=== PATIENT | male | born 1995 | race Caucasian/White ===

== ENCOUNTER 2017-03-01 11:17 | Emergency (ER) | payer OTHER ==
[2017-03-01] MEDS ORDERED: NS 1,000 ML IV ONE (11:43)
[2017-03-01 11:54] LABS: % IMMATURE GRANULYOCYTES 0.6 % (0.0-1.1); ABSOLUTE IMMATURE GRANULOCYTES 0.13 10^3/uL (0.00-0.10); ADD DIFF? NO; ADD MORPH? NO; ADD SCAN? NO; ATYPICAL LYMPHOCYTE FLAG 0 (0-99); FRAGMENT RBC FLAG 0 (0-99); HEMATOCRIT 44.2 % (40.0-51.0); LEFT SHIFT FLG 10 (0-99); LIPEMIA HEMOLYSIS FLAG 90 (0-99); MEAN CELL HEMOGLOBIN 31.2 pg (27.9-34.1); MEAN CELL HEMOGLOBIN CONCENTR. 36.2 g/dL (32.4-36.7); MEAN CELL VOLUME 86.2 fL (81.5-99.8); MEAN PLATELET VOLUME 9.3 fL (8.7-11.7); PLATELET CLUMPS FLAG 0 (0-99); PLATELET COUNT 199 10^3/uL (150-400); RED BLOOD CELL COUNT 5.13 10^6/uL (4.40-6.38); RED CELL DISTRIBUTION WIDTH 12.4 % (11.5-15.2)
--- NOTE | 2017-03-01 11:54 | EDPHY ---
H & P Stated Complaint: sore throat , fever, body aches, N/V Time Seen by Provider: 03/01/17 11:38 HPI/ROS: CHIEF COMPLAINT: 2 days of flu-like symptoms, sore throat HISTORY OF PRESENT ILLNESS: 21-year-old immunocompetent male complaining 2 days of sore throat, flu-like symptoms, nausea, vomiting. No abdominal pain. No melena or hematochezia. No hematemesis. No rash.-no nuchal rigidity. No cough. No urinary abnormality. No chest pain. No dyspnea. PRIMARY CARE PROVIDER:[facility] REVIEW OF SYSTEMS: A ten point review of systems was performed and is negative with the exception of the items mentioned in the HPI PAST MEDICAL & SURGICAL HISTORY: Anxiety. Frequent strep pharyngitis SOCIAL HISTORY: student. Originally from [place] PHYSICAL EXAM (Prior to examination, patient consented to physical exam, hands were washed and my usual and customary physical exam procedures followed) 1) GENERAL: Well-developed, well-nourished, alert and oriented. Appears to be in no acute distress. 2) HEAD: Normocephalic, atraumatic 3) HEENT: Pupils equal, round, reactive to light bilaterally. Sclera anicteric. Oropharynx: No trismus no drooling no hot potato voice, bilateral tonsils are symmetrically enlarged with white exudate. Uvula midline. Ears bilaterally with normal tympanic membranes. 4) NECK: Full range of motion, no meningeal signs. Positive submandibular adenopathy which is tender 5) LUNGS: Clear auscultation bilaterally, no wheezes, no rhonchi, no retractions. 6) HEART: Regular rate and rhythm, no murmur, no heave, no gallop. 7) ABDOMEN: No guarding, no rebound, no focal tenderness, negative McBurney's, negative Dominguez's, negative Rovsing's, negative peritoneal sign, 8) MUSCULOSKELETAL: Moving all extremities, no focal areas of tenderness, no obvious trauma. No peripheral edema or discoloration. 9) BACK: No CVA tenderness 10) SKIN: No rash, no petechiae. 11) Psychiatric: Patient is oriented X 3, there is no agitation. DIFFERENTIAL DIAGNOSIS: in no particular include but limited to strep pharyngitis, influenza, mononucleosis, meningitis - Personal History Current Tetanus/Diphtheria Vaccine: Yes Current Tetanus Diphtheria and Acellular Pertussis (TDAP): Yes - Medical/Surgical History Hx Asthma: No Hx Chronic Respiratory Disease: No Hx Diabetes: No Hx Cardiac Disease: No Hx Renal Disease: No Hx Cirrhosis: No Hx Alcoholism: No Hx HIV/AIDS: No Hx Splenectomy or Spleen Trauma: No Other PMH: PSH: adnoidECTOMY/PANIC/ANXIETY; on mirtazapine and Zoloft. - Social History Smoking Status: Never smoked Constitutional: Initial Vital Signs Heart Rate 103 H 03/01/17 11:23 Respiratory Rate 17 03/01/17 11:23 Blood Pressure 105/73 03/01/17 11:23 O2 Sat (%) 98 03/01/17 11:23 O2 Delivery Mode Room Air Allergies/Adverse Reactions: No Known Allergies Allergy (Verified 09/18/16 11:41) Home Medications: Medication Instructions Recorded MIRTAZAPINE 09/18/16 Zoloft 100mg (*) 09/18/16 Amoxicillin/Clavulanate Pot 875 mg PO BID #14 tab 03/01/17 [Augmentin 875 mg tab] Medical Decision Making ED Course/Re-evaluation: Patient was re-evaluated with serial exams was recently at 1:00 p.m.. Discussed his laboratory results. High clinical suspicion for strep pharyngitis based on his history and his current physical exam presenting symptoms. He has been given dose of IV Decadron in the emergency department. Plan will be discharged with oral Augmentin. Think the deep space infection, peritonsillar abscess, retropharyngeal abscess or phlegmon are less than likely in this patient at this time as he has no nuchal rigidity, has physical exam findings consistent with more than likely strep pharyngitis. I recommended empiric treatment. Doubt meningitis. Strict return precautions provided. He feels comfortable being discharged. Also recommended he follow up with an ear nose and throat doctor for his acute symptoms as well as his self-described history of frequent episodes of strep pharyngitis. - Data Points Laboratory Results: Laboratory Results 03/01/17 11:40 03/01/17 11:40 03/01/17 03/01/17 03/01/17 11:50 11:50 11:40 WBC RBC Hgb Hct MCV MCH MCHC RDW Plt Count MPV Neut % (Auto) Lymph % (Auto) [place] % (Auto) Eos % (Auto) Baso % (Auto) Nucleat RBC Rel Count Absolute Neuts (auto) Absolute Lymphs (auto) Absolute Monos (auto) Absolute Eos (auto) Absolute Basos (auto) Absolute Nucleated RBC Immature Gran % Immature Gran # Sodium 137 mEq/L mEq/L (134-144) Potassium 4.0 mEq/L mEq/L (3.5-5.2) Chloride 101 mEq/L mEq/L (97-110) Carbon Dioxide 19 mEq/l L mEq/l (22-31) Anion Gap 17 mEq/L H mEq/L (8-16) BUN 17 mg/dL mg/dL (7-23) Creatinine 1.1 mg/dL mg/dL (0.7-1.3) Estimated GFR > 60 Glucose 119 mg/dL H mg/dL (70-100) Calcium 10.4 mg/dL mg/dL (8.5-10.4) Total Bilirubin 1.6 mg/dL H mg/dL (0.1-1.4) Conjugated Bilirubin 0.6 mg/dL H mg/dL (0.0-0.5) Unconjugated Bilirubin 1.0 mg/dL mg/dL (0.0-1.1) AST 27 IU/L IU/L (17-59) ALT 29 IU/L IU/L (21-72) Alkaline Phosphatase 117 IU/L IU/L (38-126) Total Protein 8.6 g/dL H g/dL (6.3-8.2) Albumin 4.9 g/dL g/dL (3.5-5.0) Lipase 14.0 IU/L L IU/L (23-300) Monoscreen NEGATIVE (NEGATIVE) Influenza Typ A,B (DFA) NEGATIVE FOR FLU (NEGATIVE) 03/01/17 11:40 WBC 21.54 10^3/uL H 10^3/uL (3.80-9.50) RBC 5.13 10^6/uL 10^6/uL (4.40-6.38) Hgb 16.0 g/dL g/dL (13.7-17.5) Hct 44.2 % % (40.0-51.0) MCV 86.2 fL fL (81.5-99.8) MCH 31.2 pg pg (27.9-34.1) MCHC 36.2 g/dL g/dL (32.4-36.7) RDW 12.4 % % (11.5-15.2) Plt Count 199 10^3/uL 10^3/uL (150-400) MPV 9.3 fL fL (8.7-11.7) Neut % (Auto) 83.9 % H % (39.3-74.2) Lymph % (Auto) 4.1 % L % (15.0-45.0) [place] % (Auto) 11.0 % % (4.5-13.0) Eos % (Auto) 0.0 % L % (0.6-7.6) Baso % (Auto) 0.4 % % (0.3-1.7) Nucleat RBC Rel Count 0.0 % % (0.0-0.2) Absolute Neuts (auto) 18.09 10^3/uL H 10^3/uL (1.70-6.50) Absolute Lymphs (auto) 0.88 10^3/uL L 10^3/uL (1.00-3.00) Absolute Monos (auto) 2.36 10^3/uL H 10^3/uL (0.30-0.80) Absolute Eos (auto) 0.00 10^3/uL L 10^3/uL (0.03-0.40) Absolute Basos (auto) 0.08 10^3/uL 10^3/uL (0.02-0.10) Absolute Nucleated RBC 0.00 10^3/uL 10^3/uL (0-0.01) Immature Gran % 0.6 % % (0.0-1.1) Immature Gran # 0.13 10^3/uL H 10^3/uL (0.00-0.10) Sodium Potassium Chloride Carbon Dioxide Anion Gap BUN Creatinine Estimated GFR Glucose Calcium Total Bilirubin Conjugated Bilirubin Unconjugated Bilirubin AST ALT Alkaline Phosphatase Total Protein Albumin Lipase Monoscreen Influenza Typ A,B (DFA) Medications Given: Discontinued Medications Dexamethasone (Decadron Injection) 10 mg IVP EDNOW ONE Stop: 03/01/17 12:37 Last Admin: 03/01/17 12:44 Dose: 10 mg Sodium Chloride (Ns) 1,000 mls @ 0 mls/hr IV ONCE ONE PRN Reason: Wide Open Stop: 03/01/17 11:44 Last Admin: 03/01/17 11:51 Dose: 1,000 mls Ondansetron HCl (Zofran) 4 mg IVP EDNOW ONE Stop: 03/01/17 12:47 Last Admin: 03/01/17 12:58 Dose: 4 mg Departure - Departure Disposition: Home, Routine, Self-Care Clinical Impression: Strep pharyngitis Condition: Good Instructions: Strep Throat (ED) Additional Instructions: Return to the ER immediately if you cannot swallow, have drooling, fevers, neck stiffness, cannot open your jaw, or any other symptoms that concern you. Recommend he follow up with an ear nose and throat doctor. Dr. Theresa Fortune is an ear nose and throat doctor Referrals: RAEANN CORDERO MD [Other] - As per Instructions Prescriptions: Amoxicillin/Clavulanate Pot [Augmentin 875 mg tab] 875 mg PO BID #14 tab
[2017-03-01 12:20] LABS: ALANINE AMINOTRANSFERASE 29 IU/L (21-72); ALBUMIN 4.9 g/dL (3.5-5.0); ALKALINE PHOSPHATASE 117 IU/L (38-126); ANION GAP 17 mEq/L (8-16); ASPARTATE AMINOTRANSFERASE 27 IU/L (17-59); BILIRUBIN,TOTAL 1.6 mg/dL (0.1-1.4); BILIRUBIN-CONJUGATED 0.6 mg/dL (0.0-0.5); CALCIUM 10.4 mg/dL (8.5-10.4); CARBON DIOXIDE 19 mEq/l (22-31); CHLORIDE 101 mEq/L (97-110); CREATININE 1.1 mg/dL (0.7-1.3); GLOMERULAR FILTRATION RATE > 60; GLUCOSE 119 mg/dL (70-100); SODIUM 137 mEq/L (134-144); TOTAL PROTEIN 8.6 g/dL (6.3-8.2)
[2017-03-01] MEDS ORDERED: DEXAMETHASONE 10 MG/ML VIAL IVP ONE (12:36)
[2017-03-01] MEDS ORDERED: ONDANSETRON 4 MG/2 ML VIAL IVP ONE (12:46)
[2017-03-01 13:20] VITALS: RESP 16
[2017-03-01 13:33] VITALS: BP 112/67; PULSE 78; TEMP 98.2; O2SAT 98
== END 2017-03-01 13:33 | disposition home or self-care (01) ==
DX: J02.0 Streptococcal pharyngitis (principal)
CPT/HCPCS: 96374; J2405

== ENCOUNTER 2017-08-26 05:00 | Emergency (ER) | payer OTHER ==
[2017-08-26 05:08] VITALS: BP 121/73; PULSE 104; RESP 18; TEMP 99; O2SAT 96
--- NOTE | 2017-08-26 05:19 | EDPHY ---
H & P Stated Complaint: BIlat ear bleeding and infection on abx Time Seen by Provider: 08/26/17 05:07 HPI/ROS: Chief Complaint: Bilateral ear pain and discharge HPI: 21-year-old male with a history of recurrent ear infections was diagnosed with otitis media 3 days ago. He was started on azithromycin by urgent care. Patient woke this morning with worsening pain and blood and pus from his ears. Does not have a history of perforations in the past but did have myringotomy tubes as a child. No fevers or chills. No nausea or vomiting. No neck pain or stiffness. ROS: 10 point Review of Systems is negative except as noted in the HPI. PMH: Otitis media as a child Social History: No smoking Family History: non-contributory Physical Exam: Gen: Awake, Alert, No Distress HEENT: Ears: Bilateral auditory canals have purulent discharge without significant edema. Bilateral TMs are markedly edematous and bulging with obvious purulent discharge on both sides the TM. There is no mastoid tenderness. Nose: no rhinorrhea Eyes: PERRLA, EOMI Mouth: Moist mucosa Neck: Supple, no JVD Ext: no edema, non-tender Skin: no rash Neuro: CN II-XII intact, Sensation grossly intact, Strength 5/5 in bilateral upper and lower extremities - Personal History Current Tetanus/Diphtheria Vaccine: Yes Current Tetanus Diphtheria and Acellular Pertussis (TDAP): Yes - Medical/Surgical History Hx Asthma: No Hx Chronic Respiratory Disease: No Hx Diabetes: No Hx Cardiac Disease: No Hx Renal Disease: No Hx Cirrhosis: No Hx Alcoholism: No Hx HIV/AIDS: No Hx Splenectomy or Spleen Trauma: No Other PMH: PSH: adnoidECTOMY/PANIC/ANXIETY; on mirtazapine and Zoloft. - Social History Smoking Status: Current some day smoker Constitutional: Initial Vital Signs Temperature (C) 37.2 C 08/26/17 05:03 Heart Rate 104 H 08/26/17 05:03 Respiratory Rate 18 08/26/17 05:03 Blood Pressure 121/73 H 08/26/17 05:03 O2 Sat (%) 96 08/26/17 05:03 O2 Delivery Mode Room Air Allergies/Adverse Reactions: No Known Allergies Allergy (Verified 08/26/17 05:05) Home Medications: Medication Instructions Recorded MIRTAZAPINE 09/18/16 Zoloft 100mg (*) 09/18/16 Amoxicillin/Clavulanate Pot 875 mg PO BID #14 tab 03/01/17 [Augmentin 875 mg tab] Amoxicillin/Clavulanate Pot 875 mg PO BID #28 tab 08/26/17 [Augmentin 875 MG TAB (*)] Ofloxacin [Floxin] 10 ml OT BID #1 drops 08/26/17 Medical Decision Making ED Course/Re-evaluation: 21-year-old male with bilateral otitis media now with likely perforations. He has been on azithromycin which would not be my 1st choice for otitis media. I will start him on Augmentin. I also started on Floxin otic and analgesia. I have referred him to Dr. Aviles, ENT for outpatient follow-up. Departure - Departure Disposition: Home, Routine, Self-Care Clinical Impression: Acute otitis media, Perforated tympanic membrane Condition: Fair Instructions: Otitis Externa (ED), Ruptured Eardrum (ED), Otitis Media (ED) Additional Instructions: Please take her full course of oral antibiotics and ear drops. Follow up with Ear Nose and Throat doctor in 2-3 days for further evaluation. You may take hydrocodone 1-2 tablets every 4-6 hours as needed for pain. Return emergency department for fevers, chills, uncontrolled pain, or any other concerns. Referrals: DELIA DWYER [Other] - As per Instructions Joe Aviles MD [Medical Doctor] - As per Instructions Prescriptions: Amoxicillin/Clavulanate Pot [Augmentin 875 MG TAB (*)] 875 mg PO BID #28 tab Ofloxacin [Floxin] 10 ml OT BID #1 drops
[2017-08-26] MEDS ORDERED: HYDROCOD/APAP 5/325 PREPACK#6 BTL TAKEHOME ONE (05:21)
[2017-08-26] MEDS ORDERED: AMOXICILLIN/CLAVULANATE POT 875/125 MG TAB PO ONE (05:21)
== END 2017-08-26 05:42 | disposition home or self-care (01) ==
DX: H72.93 Unspecified perforation of tympanic membrane, bilateral (principal); H66.93 Otitis media, unspecified, bilateral; F17.200 Nicotine dependence, unspecified, uncomplicated